=== PATIENT | male | born 1995 | race Two or more races ===

== ENCOUNTER 2023-02-01 17:57 | Emergency (ER) | payer SELFPAY ==
[~2023-02-01] VITALS: Ht 170.2 cm; Wt 72.5 kg
[2023-02-01 18:42] VITALS: BP 157/104
[2023-02-01] MEDS ORDERED: CIP03OS RIGHTEYE (20:11)
== END 2023-02-01 20:19 | disposition home or self-care (01) ==
LOC: ER 17:57
DX: T15.91XA Foreign body on external eye, part unspecified, right eye, initial encounter (principal); F17.210 Nicotine dependence, cigarettes, uncomplicated
CPT/HCPCS: 65222